=== PATIENT | male | born 1960 | race Caucasian/White ===

== ENCOUNTER → 2020-03-16 | Emergency (ER) | payer OTHER ==
[~2020-03-16] VITALS: Ht 172 cm; Wt 48.6 kg
[~2020-03-16] MED LIST: NS IV 1000 ML 1,000 ML IV SCH; RT-ALBUTEROL/IPRATROPIUM 3 ML (DUONEB) VIAL INH ONE; VANCOMYCIN INJECTION 1,000 MG in NS (IVPB) 250 ML IV ONE; ceFAZolin INJECTION 1,000 MG in WATER (STERILE) FOR INJECTION 10 ML IV ONE
[2020-03-16 04:26] VITALS: BP 110/72
== END ==
LOC: ER 04:26
DX: M54.9 Dorsalgia, unspecified (principal); Z98.890 Other specified postprocedural states